=== PATIENT | male | born 1975 | race American Indian/Alaskan Native ===

== ENCOUNTER 2017-07-30 11:47 | Emergency (ER) | payer MEDICAID ==
--- NOTE | 2017-07-30 12:21 | C.PDOC ---
History Of Present Illness <Maren Baltazarerie - Last Filed: 07/30/17 12:15> <Ravin Angel - Last Filed: 07/30/17 23:26> 41 year old male is brought to the ED from medical dir after he was found to have a clonic-tonic seizure [employer]. Upon EMS arrival, patient was found confused and in a post-ictal state with no evident injuries. Patient was able to walk himself into the ambulance. Upon ER arrival at around 1300, patient was found to have a tonic-clonic seizure. (StanleyFrenchHal) <Maren Baltazarerie - Last Filed: 07/30/17 12:15> History Per: Patient History/Exam Limitations: no limitations Recent Seizure Activity Began: Just Before Arrival Number Of Seizures: One Additional History Per: Patient <Ravin Angel - Last Filed: 07/30/17 23:26> Time Seen by Provider: 07/30/17 12:13 Chief Complaint (Nursing): Seizure Past Medical History - Medical History PMH: Seizures - Social History Hx Alcohol Use: No Hx Substance Use: No - Immunization History Hx Tetanus Toxoid Vaccination: No Hx Influenza Vaccination: No Hx Pneumococcal Vaccination: No <Mitzi Baltazar - Last Filed: 07/30/17 12:15> Reviewed: Historical Data, Nursing Documentation, Vital Signs - Medical History PMH: No Chronic Diseases Surgical History: No Surg Hx Family History: States: Unknown Family Hx <Ravin Angel - Last Filed: 07/30/17 23:26> Vital Signs: Last Vital Signs Temp 98 F 07/30/17 18:07 Pulse 64 07/30/17 18:07 Resp 20 07/30/17 18:07 BP 110/66 07/30/17 18:07 Pulse Ox 97 07/30/17 23:25 Review Of Systems Neurological: Positive for: Seizures <Ravin Angel - Last Filed: 07/30/17 23:26> Physical Exam - Physical Exam Appears: Non-toxic, No Acute Distress Skin: Normal Color, Warm, Dry Head: Other (jaw inferiorly dislocated ) Eye(s): bilateral: Normal Inspection Oral Mucosa: Moist Neck: Supple Chest: Symmetrical, No Deformity, No Tenderness Cardiovascular: Rhythm Regular, No Murmur Respiratory: Normal Breath Sounds, No Rales, No Rhonchi, No Wheezing Gastrointestinal/Abdominal: Soft, No Tenderness, No Guarding, No Rebound Extremity: Normal ROM, Capillary Refill (less than 2 seconds ) Neurological/Psych: Oriented x3, Normal Speech, Normal Cognition <Ravin Angel - Last Filed: 07/30/17 23:26> ED Course And Treatment O2 Sat by Pulse Oximetry: 97 <Mitzi Baltazar - Last Filed: 07/30/17 12:15> - Laboratory Results Result Diagrams: 07/30/17 13:35 07/30/17 13:35 O2 Sat by Pulse Oximetry: 97 Progress Note: Bloodwork, UA, CXR, EKG ordered and reviewed. Ativan 4mg IVP given to control seizure and agitation. Keppra IVP and Versed IV given. <Ravin Angel - Last Filed: 07/30/17 23:26> Orthopedic <Mitzi Baltazar - Last Filed: 07/30/17 12:15> Time Out: Side verified, Site verified Performed by: Attending Physician Procedural Sedation: Versed (2mg) Patient tolerated procedure: Well <Ravin Angel - Last Filed: 07/30/17 23:26> Other:: jaw inferiorly dislocated (Ravin Angel) Notes:: Inferior traction of the jaw. Able to relocate jaw into place. Normal voice and bite noted afterwards. (Ravin Angel) Medical Decision Making <Mitzi Baltazar - Last Filed: 07/30/17 12:15> <Ravin Angel - Last Filed: 07/30/17 23:26> Medical Decision Making: typical seizure, h/o same no seizure meds regularly start keppra and f/u as opt. 8th jaw disloc without fx, now reduced appropriately. (Ravin Angel) Disposition <Mitzi Baltazar - Last Filed: 07/30/17 12:15> Doctor Will See Patient In The: Office Counseled Patient/Family Regarding: Studies Performed, Diagnosis - Disposition Disposition Time: 15:28 <Ravin Angel - Last Filed: 07/30/17 23:26> - Disposition Referrals: [facility] [Outside] [facility] [Outside] [facility] [Outside] Kim Corona MD [Staff Provider] - Disposition: HOME/ ROUTINE Condition: GOOD Additional Instructions: keppra 500 mg twice a day (8AM and 4PM) follow-up with Dr. Corona- Neurologist specializing in seizures call to make an appointment Prescriptions: levETIRAcetam [Keppra] 500 mg PO BID #60 tab Instructions: Seizures, Adult (DC), Dislocated Jaw (DC) Forms: [employer] (German) - Clinical Impression Clinical Impression: Tonic-clonic seizure, Jaw dislocation <Mitzi Baltazar - Last Filed: 07/30/17 12:15> - Scribe Statement The provider has reviewed the documentation as recorded by the Scribe (Sally Kearney) <Ravin Angel - Last Filed: 07/30/17 23:26> - Scribe Statement Provider Attestation: All medical record entries made by the Scribe were at my direction and personally dictated by me. I have reviewed the chart and agree that the record accurately reflects my personal performance of the history, physical exam, medical decision making, and the department course for this patient. I have also personally directed, reviewed, and agree with the discharge instructions and disposition. (Ravin Angel)
[2017-07-30 13:45] LABS: BASO % 0.6 % (0.0-2.0); EOS # 0.1 K/uL (0.0-0.7); EOS % 0.9 % (0.0-4.0); LYMPH # 3.1 K/uL (1.0-4.3); MEAN CELL VOLUME 83.9 fL (80.0-94.0); MEAN CORPUSCULAR HEMOGLOBIN 27.7 pg (27.0-31.0); MEAN PLATELET VOLUME 9.2 fL (7.2-11.7); MONO # 0.6 K/uL (0.0-0.8); MONO % 8.6 % (0.0-10.0); NEUT % 43.9 % (50.0-75.0); RBC 5.42 Mil/uL (4.40-5.90); RED CELL DISTRIBUTION WIDTH 13.6 % (11.5-14.5); WHITE BLOOD COUNT 6.8 K/uL (4.8-10.8)
--- NOTE | 2017-07-30 14:00 | RAD ---
PROCEDURE: CHEST RADIOGRAPH, 1 VIEW HISTORY: R/o active disease COMPARISON: None available. FINDINGS: LUNGS: Clear. PLEURA: No pneumothorax or pleural fluid seen. CARDIOVASCULAR: Normal. OSSEOUS STRUCTURES: No significant abnormalities. VISUALIZED UPPER ABDOMEN: Normal. OTHER FINDINGS: None. IMPRESSION: No active disease.
[2017-07-30 14:04] LABS: ALB/GLOB RATIO 1.2 (1.0-2.1); ALBUMIN 4.5 g/dL (3.5-5.0); CALCIUM 9.2 mg/dl (8.6-10.4); GFR AFRICAN-AMERICAN > 60; GFR NON-AFRICAN AMERICAN > 60
[2017-07-30 14:05] LABS: ALT/SGPT 34 U/L (21-72); AST/SGOT 39 U/L (17-59); BLOOD UREA NITROGEN 14 mg/dL (9-20)
[2017-07-30] MEDS ORDERED: Midazolam 2 MG/2 ML VIAL IV STA (14:36)
[2017-07-30] MEDS ORDERED: Midazolam 2 MG/2 ML VIAL ONE (14:47)
--- NOTE | 2017-07-30 15:04 | CT ---
PROCEDURE: CT HEAD WITHOUT CONTRAST. HISTORY: Seizure activity COMPARISON: None available. TECHNIQUE: Axial computed tomography images were obtained through the head/brain without intravenous contrast. Radiation dose: Total exam DLP = 1337.75 mGy-cm. This CT exam was performed using one or more of the following dose reduction techniques: Automated exposure control, adjustment of the mA and/or kV according to patient size, and/or use of iterative reconstruction technique. Please note that the examination is somewhat limited due to the patient's inability to fully cooperate for examination resulting patient motion. FINDINGS: HEMORRHAGE: No intracranial hemorrhage. BRAIN: No mass effect or edema. No atrophy or chronic microvascular ischemic changes. VENTRICLES: Unremarkable. No hydrocephalus. CALVARIUM: Unremarkable. PARANASAL SINUSES: Very small right maxillary retention cyst/polyp. No evidence of sinusitis. MASTOID AIR CELLS: Unremarkable as visualized. No inflammatory changes. OTHER FINDINGS: None. IMPRESSION: No intracranial mass, hemorrhage or evidence of acute infarct. Very small right maxillary retention cyst/ polyp. Otherwise unremarkable examination.
--- NOTE | 2017-07-30 15:17 | CT ---
PROCEDURE: CT MAXILLOFACIAL BONES WITHOUT CONTRAST HISTORY: Left jaw dislocation COMPARISON: None TECHNIQUE: Contiguous axial CT images of the maxillofacial bones were obtained. Coronal and sagittal reformats were generated. Radiation dose: Total exam DLP = 1691.38 mGy-cm. This CT exam was performed using one or more of the following dose reduction techniques: Automated exposure control, adjustment of the mA and/or kV according to patient size, and/or use of iterative reconstruction technique. FINDINGS: NASAL BONES: Unremarkable. ORBITS: Unremarkable. PARANASAL SINUSES/ MASTOIDS: Clear. MAXILLA: Unremarkable. MANDIBLE/ TEMPOROMANDIBULAR JOINTS: Bilateral anterior dislocation of the temporomandibular joint. No fracture identified. SKULL BASE: Unremarkable. TEMPORAL BONES: Middle ears and mastoid grossly unremarkable. OTHER FINDINGS: None. IMPRESSION: Bilateral anterior temporomandibular dislocation. No fracture. Otherwise unremarkable.
[2017-07-30 16:22] LABS: URINE BILIRUBIN NEGATIVE (NEGATIVE); URINE BLOOD NEGATIVE (NEGATIVE); URINE CLARITY Clear (Clear); URINE COLOR Yellow (YELLOW); URINE GLUCOSE (UA) NORMAL (Normal); URINE LEUKOCYTE ESTERASE NEG Leu/uL (Negative); URINE PROTEIN NEGATIVE (NEGATIVE); URINE UROBILINOGEN NORMAL mg/dL (0.2-1.0)
[2017-07-30 16:36] LABS: BARBITURATES, UR NEGATIVE (NEGATIVE); OPIATES, UR NEGATIVE (NEGATIVE); PHENCYCLIDINE, UR NEGATIVE (NEGATIVE)
[2017-07-30 16:38] LABS: BENZODIAZEPINES, UR POSITIVE (NEGATIVE)
[2017-07-30 18:08] VITALS: BP 110/66; PULSE 64; RESP 20; TEMP 98
[2017-07-30 23:24] VITALS: O2SAT 97
--- NOTE | 2017-08-02 10:16 | CARD ---
APPROVED REPORT EKG Measurement Heart [id number] <Conclusion> Normal sinus rhythm with sinus arrhythmia Left ventricular hypertrophy with QRS widening ST elevation, consider early repolarization, pericarditis, or injury Nonspecific ST and T wave abnormality Abnormal ECG
== END 2017-07-30 19:54 | disposition home or self-care (01) ==
LOC: C.ER 11:47
DX: G40.409 Other generalized epilepsy and epileptic syndromes, not intractable, without status epilepticus (principal); S03.00XA Dislocation of jaw, unspecified side, initial encounter; X58.XXXA Exposure to other specified factors, initial encounter; Y92.89 Other specified places as the place of occurrence of the external cause
CPT/HCPCS: 21480; 70450; 70486; 71045; 80053; 80320; 80324; 80345; 80346; 80349; 80353; 80358; 80361; 81001; 82948; 83992; 85025; 93005; 96365; 96375; 99285; J1953; J2060